=== PATIENT | female | born 1930 | race Caucasian/White ===

== ENCOUNTER 2016-12-13 18:31 | Emergency (ER) | payer MEDICARE ==
[~2016-12-13] VITALS: Ht 160 cm; Wt 61.2 kg
[2016-12-13 18:31] VITALS: BP 118/71; PULSE 98; RESP 18; TEMP 97.9; O2SAT 98
[~2016-12-13 18:31] MED LIST: ALEN70TA3 PO; ATEN50TA PO; GLU500 PO; LEVO88TA2 PO; LIP20 PO; LISI-217 PO; LISI-600 PO; SIMV5TAB53 PO; SIMV80TA74 PO; WARF3TAB PO
--- NOTE | 2016-12-13 18:31 | NUR ---
Pt BIB ALS, placed to ER bed 04 and to spot cleaner. Pt report given to MARK Guerrero.
--- NOTE | 2016-12-13 18:32 | NUR ---
DR. FREED AT BEDSIDE
[2016-12-13] MEDS ORDERED: NS 1000 ML BAG IV ONE (19:00)
--- NOTE | 2016-12-13 19:30 | NUR ---
Received report PM shift endorsement. Patient calm in bed, denies pain, AAOx3. C/O dizziness. unlabored breathing, no signs of distress.
[2016-12-13 19:35] LABS: HEMATOCRIT 27.4 % (36-48); HEMOGLOBIN 8.8 g/dL (12.0-16.0); MEAN CORPUSCULAR HEMOGLOBIN 25 pg (27-31); MEAN CORPUSCULAR HGB CONC 32 % (32-36); MEAN CORPUSCULAR VOLUME 79 fL (79.0-98.0); PLATELET COUNT (AUTO) 158 K/uL (130-430); RED BLOOD CELL COUNT(AUTO) 3.49 MIL/uL (4.2-6.2); RED CELL DISTRIBUTION WIDTH 15.3 % (9.0-15.0)
--- NOTE | 2016-12-13 19:36 | NUR ---
Patient incontinent, large soft BM with bright red blood significant amount. Does not appear to come from anus area. ER MD Garrett aware. Patient cleaned, linen changed. Patient tolerated well.
--- NOTE | 2016-12-13 19:50 | NUR ---
# 20 gauge angiocath placed to LEFT FOREARM. Use of asceptic technique. Opsite placed over site. Blood return noted. Flushed with 10 cc of normal saline. No evidence of infiltration noted. Patient tolerated well.
[2016-12-13 19:53] LABS: ANION GAP 8 (5-15); CALCIUM 9.7 mg/dL (8.4-11.0); CHLORIDE 106 mmol/L (98-107); CREATININE 1.12 mg/dL (0.55-1.30); GLUCOSE 193 mg/dL (70-99); POTASSIUM 4.2 mmol/L (3.5-5.1); SODIUM SERUM 139 mmol/L (136-145); UREA NITROGEN, BLOOD 22 mg/dL (8-21)
--- NOTE | 2016-12-13 19:55 | NUR ---
Mainframe Applications Developer at bedside for blood draw. Patient identified x2
[2016-12-13 19:58] LABS: ALANINE AMINOTRANSFERASE 18 U/L (12-78); ALBUMIN 3.7 g/dL (3.4-4.8); ASPARTATE AMINOTRANSFERASE 16 U/L (10-37); TOTAL BILIRUBIN 0.6 mg/dL (0.0-1.0); TOTAL PROTEIN, SERUM 7.7 g/dL (6.4-8.3)
[2016-12-13 20:05] LABS: ATYPICAL LYMPHOCYTES % 5 % (0-0); BAND % (MANUAL) 11 % (0-6); BASOPHILS % (MANUAL) 1 % (0-2); EOSINOPHILS % (MANUAL) 3 % (0-7); LYMPHOCYTES % (MANUAL) 10 % (20-46); MONOCYTES % (MANUAL) 3 % (0-11)
[2016-12-13 20:55] LABS: PROTHROMBIN TIME 10.6 SECS (9.5-12.5)
[2016-12-13] MEDS ORDERED: FURO-150 PO (21:05)
[2016-12-13] MEDS ORDERED: LEVO88TA5 PO (21:05)
[2016-12-13] MEDS ORDERED: LISI10TA5 PO (21:05)
[2016-12-13] MEDS ORDERED: PRO40 PO (21:05)
[2016-12-13] MEDS ORDERED: GLU850 PO (21:05)
[2016-12-13] MEDS ORDERED: ASA81 PO (21:05)
--- NOTE | 2016-12-13 21:05 | NUR ---
Medication reconciliation completed with information provided by - verbal from son. Any prior medication reconciliation on file was reviewed and corrected.
--- NOTE | 2016-12-13 21:09 | NUR ---
Patient in Ultrasound for U/S via gurmegan
--- NOTE | 2016-12-13 21:30 | NUR ---
# 16 FR Winters catheter with use of sterile technique. Immediate return of 200 cc pale yeallow urine noted. Bedside drainage bag placed below level of bladder. Urine sample collected and sent to lab. Pt tolerated procedure well. Patient unable to toilet self.
[2016-12-13 22:12] LABS: BILIRUBIN,URINE NEGATIVE (NEGATIVE); BLOOD, URINE NEGATIVE (NEGATIVE); CLARITY/URINE CLEAR (CLEAR); COLOR,URINE YELLOW (YELLOW); GLUCOSE,URINE NEGATIVE (NEGATIVE); KETONES,URINE NEGATIVE (NEGATIVE); LEUKOCYTE ESTERASE ,URINE NEGATIVE (NEGATIVE); NITRITE, URINE NEGATIVE (NEGATIVE); PROTEIN URINE NEGATIVE (NEGATIVE); UROBILINOGEN,URINE 0.2 (0.2-1.0)
--- NOTE | 2016-12-13 22:43 | NUR ---
Patient asleep in bed, VS WNL. No signs of acute distress.
--- NOTE | 2016-12-13 23:17 | NUR ---
Patient cleaned bloody BM, linen changed.
[2016-12-14 00:47] VITALS: BP 143/77; PULSE 73; RESP 16; TEMP 97.8; O2SAT 99
--- NOTE | 2016-12-14 00:47 | NUR ---
Patient to be transferred to [facility] ER. Is being transferred due to higher level of care. Receiving facility has accepting physician and available space. ER physician has signed transfer form. Patient or responsible constitution party has agreed to transfer and signed form. Patient belongings inventoried and will be sent with patient. Copy of nursing notes, lab reports, EKG, Physicians Orders and X-rays to be sent with patient. Report called to Panfilo FLORES at receiving facility. Receiving physician is Manolo. Ambulance service here picking up the patient.
== END 2016-12-14 00:47 | disposition short-term general hospital (02) ==
LOC: SED 18:31
DX: N93.8 Other specified abnormal uterine and vaginal bleeding (principal); E11.9 Type 2 diabetes mellitus without complications; I10 Essential (primary) hypertension; Z86.79 Personal history of other diseases of the circulatory system; Z96.649 Presence of unspecified artificial hip joint; Z88.5 Allergy status to narcotic agent; Z79.82 Long term (current) use of aspirin
CPT/HCPCS: 36415; 51702; 71010; 74176; 76856; 80053; 81003; 83605; 84484; 85007; 85027; 85610; 85730; 86886; 86900; 86901; 87040; 93005; 96360; 99285; J7030

== ENCOUNTER 2016-12-16 00:28 | Emergency (ER) | payer MEDICARE ==
[~2016-12-16] VITALS: Ht 160 cm; Wt 54.4 kg
[~2016-12-16 00:28] MED LIST changes: +ASA81 PO; +FURO-150 PO; +GLU850 PO; +LEVO88TA5 PO; +LISI10TA5 PO; +PRO40 PO
[2016-12-16 00:33] VITALS: BP 110/82; PULSE 96; RESP 19; TEMP 97.3; O2SAT 97
[2016-12-16] MEDS ORDERED: NACL 0.9% 1,000 ML IV ONE (00:33)
[2016-12-16] MEDS ORDERED: ONDANSETRON HCL 4 MG/2 ML VIAL IVP ONE (00:45)
[2016-12-16 00:59] LABS: BASOPHILS # (AUTO) 0.2 K/uL (0.0-0.2); BASOPHILS % (AUTO) 1.5 % (0.0-2.0); EOSINOPHILS # (AUTO) 0.1 K/uL (0.0-0.4); EOSINOPHILS % (AUTO) 1.2 % (0.0-4.0); HEMATOCRIT 33.4 % (36-48); HEMOGLOBIN 10.9 g/dL (12.0-16.0); LYMPHOCYTES # (AUTO) 1.2 K/uL (1.0-5.5); LYMPHOCYTES % (AUTO) 9.8 % (20.5-51.5); MEAN CORPUSCULAR HEMOGLOBIN 27 pg (27-31); MEAN CORPUSCULAR HGB CONC 33 % (32-36); MEAN CORPUSCULAR VOLUME 82 fL (79.0-98.0); MONOCYTES # (AUTO) 0.6 K/uL (0.0-1.0); MONOCYTES % (AUTO) 5.5 % (1.7-9.3); NEUTROPHILS # (AUTO) 9.7 K/uL (1.8-7.7); PLATELET COUNT (AUTO) 194 K/uL (130-430); RED BLOOD CELL COUNT(AUTO) 4.07 MIL/uL (4.2-6.2); RED CELL DISTRIBUTION WIDTH 16.1 % (9.0-15.0); WHITE BLOOD COUNT (AUTO) 11.8 K/uL (4.8-10.8)
[2016-12-16 01:15] LABS: ANION GAP 10 (5-15); CALCIUM 10.3 mg/dL (8.4-11.0); CHLORIDE 104 mmol/L (98-107); CREATININE 1.38 mg/dL (0.55-1.30); GLUCOSE 204 mg/dL (70-99); POTASSIUM 4.6 mmol/L (3.5-5.1); SODIUM SERUM 139 mmol/L (136-145); UREA NITROGEN, BLOOD 51 mg/dL (8-21)
[2016-12-16 01:25] LABS: ALANINE AMINOTRANSFERASE 19 U/L (12-78); ALBUMIN 3.6 g/dL (3.4-4.8); AMYLASE 51 U/L (0-100); ASPARTATE AMINOTRANSFERASE 29 U/L (10-37); LIPASE 221 U/L (73-393); TOTAL BILIRUBIN 1.1 mg/dL (0.0-1.0); TOTAL PROTEIN, SERUM 7.6 g/dL (6.4-8.3)
[2016-12-16 01:29] LABS: PROTHROMBIN TIME 10.7 SECS (9.5-12.5)
[2016-12-16 02:58] LABS: BILIRUBIN,URINE NEGATIVE (NEGATIVE); BLOOD, URINE NEGATIVE (NEGATIVE); COLOR,URINE YELLOW (YELLOW); GLUCOSE,URINE NEGATIVE (NEGATIVE); KETONES,URINE NEGATIVE (NEGATIVE); LEUKOCYTE ESTERASE ,URINE 1+ (NEGATIVE); NITRITE, URINE POSITIVE (NEGATIVE); PH,URINE 5.5 (5.0-8.0); PROTEIN URINE NEGATIVE (NEGATIVE); UROBILINOGEN,URINE 0.2 (0.2-1.0)
[2016-12-16 03:11] LABS: CLARITY/URINE HAZY (CLEAR)
[2016-12-16 03:18] LABS: BACTERIA,URINE MANY /HPF (None Seen); RBC,URINE 0-3 /HPF (0-3)
[2016-12-16 03:19] LABS: MUCUS,URINE None Seen /LPF (None Seen)
[2016-12-16 04:05] VITALS: BP 102/61; PULSE 88; RESP 16; TEMP 97.8; O2SAT 95
== END 2016-12-16 04:05 | disposition short-term general hospital (02) ==
LOC: SED 00:28
DX: K92.2 Gastrointestinal hemorrhage, unspecified (principal); E11.9 Type 2 diabetes mellitus without complications; I10 Essential (primary) hypertension; Z86.79 Personal history of other diseases of the circulatory system; Z88.5 Allergy status to narcotic agent; Z79.899 Other long term (current) drug therapy
CPT/HCPCS: 36415; 80053; 81000; 82150; 83605; 83690; 84484; 85025; 85610; 85730; 87086; 93005; 96361; 96374; 99285; J2405; J7030; 87186-TC

== ENCOUNTER 2017-04-10 20:57 | Emergency (ER) | payer MEDICARE ==
[~2017-04-10] VITALS: Ht 160 cm; Wt 56.7 kg
[~2017-04-10 20:57] MED LIST changes: -ALEN70TA3 PO; -ATEN50TA PO; -GLU500 PO; -LEVO88TA2 PO; -LISI-217 PO; -LISI-600 PO; -SIMV5TAB53 PO; -SIMV80TA74 PO; -WARF3TAB PO
[2017-04-10 21:10] VITALS: BP_SYST 133
[2017-04-10] MEDS ORDERED: NACL 0.9% 1,000 ML IV ONE (22:00)
[2017-04-10 22:11] LABS: HEMATOCRIT 34.9 % (36-48)
[2017-04-10 22:15] LABS: ANION GAP 9 (5-15); CALCIUM 10.6 mg/dL (8.4-11.0); CHLORIDE 104 mmol/L (98-107); CREATININE 1.34 mg/dL (0.55-1.30); GLUCOSE 158 mg/dL (70-99); POTASSIUM 4.1 mmol/L (3.5-5.1); SODIUM SERUM 138 mmol/L (136-145); UREA NITROGEN, BLOOD 25 mg/dL (8-21)
[2017-04-10 22:16] LABS: HEMOGLOBIN 11.6 g/dL (12.0-16.0); MEAN CORPUSCULAR HEMOGLOBIN 28 pg (27-31); MEAN CORPUSCULAR HGB CONC 33 % (32-36); MEAN CORPUSCULAR VOLUME 86 fL (79.0-98.0); PLATELET COUNT (AUTO) 196 K/uL (130-430); RED BLOOD CELL COUNT(AUTO) 4.07 MIL/uL (4.2-6.2); RED CELL DISTRIBUTION WIDTH 19.8 % (9.0-15.0); WHITE BLOOD COUNT (AUTO) 10.8 K/uL (4.8-10.8)
[2017-04-10 22:18] LABS: PROTHROMBIN TIME 10.6 SECS (9.5-12.5)
[2017-04-10 22:20] LABS: ALANINE AMINOTRANSFERASE 24 U/L (12-78); ALBUMIN 3.9 g/dL (3.4-4.8); ASPARTATE AMINOTRANSFERASE 22 U/L (10-37); TOTAL BILIRUBIN 0.7 mg/dL (0.0-1.0); TOTAL PROTEIN, SERUM 8.1 g/dL (6.4-8.3)
[2017-04-10 22:26] LABS: BAND % (MANUAL) 2 % (0-6); BASOPHILS % (MANUAL) 0 % (0-2); EOSINOPHILS % (MANUAL) 2 % (0-7); LYMPHOCYTES % (MANUAL) 5 % (20-46); MONOCYTES % (MANUAL) 6 % (0-11)
[2017-04-10 23:12] LABS: BILIRUBIN,URINE NEGATIVE (NEGATIVE); BLOOD, URINE 1+ (NEGATIVE); CLARITY/URINE CLOUDY (CLEAR); COLOR,URINE YELLOW (YELLOW); GLUCOSE,URINE NEGATIVE (NEGATIVE); KETONES,URINE NEGATIVE (NEGATIVE); LEUKOCYTE ESTERASE ,URINE 3+ (NEGATIVE); NITRITE, URINE POSITIVE (NEGATIVE); PROTEIN URINE 2+ (NEGATIVE); UROBILINOGEN,URINE 0.2 (0.2-1.0)
[2017-04-10 23:21] LABS: BACTERIA,URINE MANY /HPF (None Seen); MUCUS,URINE None Seen /LPF (None Seen); RBC,URINE 0-3 /HPF (0-3); WBC,URINE >100 /HPF (0-3)
[2017-04-10] MEDS ORDERED: LEVOFLOXACIN 500 MG/D5W 100 ML IV ONE (23:45)
[2017-04-11 00:53] VITALS: BP_SYST 115
== END 2017-04-11 00:53 | disposition home or self-care (01) ==
LOC: SED 20:57
DX: N39.0 Urinary tract infection, site not specified (principal); I10 Essential (primary) hypertension; E11.9 Type 2 diabetes mellitus without complications; Z86.73 Personal history of transient ischemic attack (TIA), and cerebral infarction without residual deficits; Z79.82 Long term (current) use of aspirin; Z96.649 Presence of unspecified artificial hip joint; Z88.5 Allergy status to narcotic agent
CPT/HCPCS: 36415; 71010; 80053; 81000; 85007; 85027; 85610; 85730; 87086; 87186; 93005; 96361; 96365; 99285; J1956; J7030

== ENCOUNTER 2017-09-24 16:09 | Emergency (ER) | payer MEDICARE ==
[~2017-09-24] VITALS: Ht 160 cm; Wt 61.2 kg
[2017-09-24 16:17] VITALS: BP_SYST 131
[2017-09-24 17:34] LABS: BASOPHILS % (AUTO) 0.7 % (0.0-2.0); EOSINOPHILS # (AUTO) 0.3 K/uL (0.0-0.4); HEMATOCRIT 36.7 % (36-48); HEMOGLOBIN 12.4 g/dL (12.0-16.0); LYMPHOCYTES # (AUTO) 2.1 K/uL (1.0-5.5); LYMPHOCYTES % (AUTO) 20.3 % (20.5-51.5); MEAN CORPUSCULAR HEMOGLOBIN 33 pg (27-31); MEAN CORPUSCULAR HGB CONC 34 % (32-36); MEAN CORPUSCULAR VOLUME 96 fL (79.0-98.0); MONOCYTES # (AUTO) 0.7 K/uL (0.0-1.0); MONOCYTES % (AUTO) 7.1 % (1.7-9.3); NEUTROPHILS # (AUTO) 7.3 K/uL (1.8-7.7); NEUTROPHILS % (AUTO) 68.9 % (40.0-70.0); RED BLOOD CELL COUNT(AUTO) 3.83 MIL/uL (4.2-6.2); RED CELL DISTRIBUTION WIDTH 12.5 % (9.0-15.0); WHITE BLOOD COUNT (AUTO) 10.5 K/uL (4.8-10.8)
[2017-09-24 17:39] LABS: ANION GAP 9 (5-15); CHLORIDE 104 mmol/L (98-107); CREATININE 1.01 mg/dL (0.55-1.30); GLUCOSE 108 mg/dL (70-99); SODIUM SERUM 138 mmol/L (136-145); UREA NITROGEN, BLOOD 14 mg/dL (8-21)
[2017-09-24 17:43] LABS: ALANINE AMINOTRANSFERASE 24 U/L (12-78); ALBUMIN 3.8 g/dL (3.4-4.8); ASPARTATE AMINOTRANSFERASE 20 U/L (10-37); TOTAL BILIRUBIN 0.7 mg/dL (0.0-1.0)
[2017-09-24 17:44] LABS: PLATELET COUNT (AUTO) 156 K/uL (130-430)
[2017-09-24 17:45] LABS: BASOPHILS # (AUTO) 0.1 K/uL (0.0-0.2)
[2017-09-24] MEDS ORDERED: ENOXAPARIN SODIUM 60 MG/0.6 ML SYRINGE SUBCUT ONE (18:00)
[2017-09-24 19:16] VITALS: BP_SYST 150
== END 2017-09-24 19:16 | disposition short-term general hospital (02) ==
LOC: SED 16:09
DX: I82.5Z2 Chronic embolism and thrombosis of unspecified deep veins of left distal lower extremity (principal); R60.0 Localized edema; E11.9 Type 2 diabetes mellitus without complications; I10 Essential (primary) hypertension; Z96.649 Presence of unspecified artificial hip joint; Z88.5 Allergy status to narcotic agent; Z79.899 Other long term (current) drug therapy
CPT/HCPCS: 36415; 71010; 80053; 85025; 85379; 93005; 93971; 99285

== ENCOUNTER 2018-02-13 14:15 | Emergency (ER) | payer MEDICARE ==
[~2018-02-13] VITALS: Ht 165.1 cm; Wt 54.4 kg
[2018-02-13 14:15] VITALS: BP_SYST 145
[~2018-02-13 14:15] MED LIST changes: +ALEN70TA27 PO; +CALC-995 PO; +CHOL2000 PO; +FA/M1TAB31 PO; +FURO20TA4 PO; +GLU500 PO; +LIP40 PO; +LISI-209 PO; +ONDA4TAB5 PO
[2018-02-13] MEDS ORDERED: NACL 0.9% 1,000 ML IV ONE (14:18)
[2018-02-13] MEDS ORDERED: MORPHINE 4 MG/ML INJ. SYRINGE IVP ONE (14:30)
[2018-02-13] MEDS ORDERED: ONDANSETRON HCL 4 MG/2 ML VIAL IVP ONE (14:30)
[2018-02-13 15:02] LABS: BASOPHILS % (AUTO) 0.1 % (0.0-2.0); EOSINOPHILS # (AUTO) 0.1 K/uL (0.0-0.4); EOSINOPHILS % (AUTO) 0.8 % (0.0-4.0); HEMATOCRIT 38.6 % (36-48); HEMOGLOBIN 12.5 g/dL (12.0-16.0); LYMPHOCYTES # (AUTO) 0.3 K/uL (1.0-5.5); LYMPHOCYTES % (AUTO) 3.4 % (20.5-51.5); MEAN CORPUSCULAR HEMOGLOBIN 30 pg (27-31); MEAN CORPUSCULAR HGB CONC 32 % (32-36); MEAN CORPUSCULAR VOLUME 93 fL (79.0-98.0); MONOCYTES % (AUTO) 0.5 % (1.7-9.3); NEUTROPHILS # (AUTO) 8.8 K/uL (1.8-7.7); NEUTROPHILS % (AUTO) 95.2 % (40.0-70.0); PLATELET COUNT (AUTO) 159 K/uL (130-430); RED BLOOD CELL COUNT(AUTO) 4.16 MIL/uL (4.2-6.2); WHITE BLOOD COUNT (AUTO) 9.2 K/uL (4.8-10.8)
[2018-02-13 15:16] LABS: ANION GAP 10 (5-15); CALCIUM 9.2 mg/dL (8.4-11.0); CHLORIDE 103 mmol/L (98-107); CREATININE 1.03 mg/dL (0.55-1.30); GLUCOSE 151 mg/dL (70-99); SODIUM SERUM 137 mmol/L (136-145); UREA NITROGEN, BLOOD 20 mg/dL (8-21)
[2018-02-13 15:21] LABS: ALANINE AMINOTRANSFERASE 26 U/L (12-78); ALBUMIN 3.5 g/dL (3.4-4.8); AMYLASE 51 U/L (0-100); ASPARTATE AMINOTRANSFERASE 21 U/L (10-37); LIPASE 239 U/L (73-393); TOTAL BILIRUBIN 1.1 mg/dL (0.0-1.0)
[2018-02-13] MEDS ORDERED: ACETAMINOPHEN 325 MG TABLET ONE (15:26)
[2018-02-13] MEDS ORDERED: ACETAMINOPHEN 325 MG TABLET PO ONE (15:30)
[2018-02-13 15:58] LABS: BILIRUBIN,URINE NEGATIVE (NEGATIVE); BLOOD, URINE NEGATIVE (NEGATIVE); CLARITY/URINE CLEAR (CLEAR); COLOR,URINE YELLOW (YELLOW); GLUCOSE,URINE NEGATIVE (NEGATIVE); KETONES,URINE NEGATIVE (NEGATIVE); LEUKOCYTE ESTERASE ,URINE NEGATIVE (NEGATIVE); NITRITE, URINE NEGATIVE (NEGATIVE); PROTEIN URINE NEGATIVE (NEGATIVE); UROBILINOGEN,URINE 0.2 (0.2-1.0)
[2018-02-13] MEDS ORDERED: cefTRIAXone 1 GM in D5W 50 ML IV ONE (16:00)
[2018-02-13] MEDS ORDERED: cefTRIAXone 1 GM VIAL ONE (16:06)
[2018-02-13 18:19] VITALS: BP_SYST 116
== END 2018-02-13 18:15 | disposition short-term general hospital (02) ==
LOC: SED 14:15
DX: S73.004A Unspecified dislocation of right hip, initial encounter (principal); I10 Essential (primary) hypertension; R32 Unspecified urinary incontinence; Z86.73 Personal history of transient ischemic attack (TIA), and cerebral infarction without residual deficits; Z88.5 Allergy status to narcotic agent; Z79.899 Other long term (current) drug therapy; X58.XXXA Exposure to other specified factors, initial encounter; Y93.89 Activity, other specified; Y92.89 Other specified places as the place of occurrence of the external cause; Y99.8 Other external cause status
CPT/HCPCS: 36415; 51702; 71045; 72170; 80053; 81003; 82150; 82550; 83690; 84484; 85025; 85610; 85730; 93005; 96365; 96375; 99285; J0696; J2270; J2405; J7030

== ENCOUNTER 2018-04-30 21:54 | Emergency (ER) | payer MEDICARE ==
[~2018-04-30] VITALS: Ht 162.6 cm; Wt 54.4 kg
[~2018-04-30 21:54] MED LIST changes: -FURO-150 PO; -GLU850 PO; +HYDR-1189 PO; -LEVO88TA5 PO; -LIP20 PO; -LISI10TA5 PO; -ONDA4TAB5 PO; -PRO40 PO
[2018-04-30 22:02] VITALS: BP_SYST 138
[2018-04-30] MEDS ORDERED: NACL 0.9% 1,000 ML IV ONE (22:30)
[2018-04-30 22:49] LABS: BASOPHILS % (AUTO) 0.3 % (0.0-2.0); EOSINOPHILS # (AUTO) 0.1 K/uL (0.0-0.4); EOSINOPHILS % (AUTO) 1.2 % (0.0-4.0); HEMATOCRIT 32.9 % (36-48); HEMOGLOBIN 11.4 g/dL (12.0-16.0); LYMPHOCYTES # (AUTO) 0.9 K/uL (1.0-5.5); LYMPHOCYTES % (AUTO) 9.5 % (20.5-51.5); MEAN CORPUSCULAR HEMOGLOBIN 33 pg (27-31); MEAN CORPUSCULAR HGB CONC 35 % (32-36); MEAN CORPUSCULAR VOLUME 94 fL (79.0-98.0); MONOCYTES # (AUTO) 0.9 K/uL (0.0-1.0); NEUTROPHILS # (AUTO) 7.6 K/uL (1.8-7.7); PLATELET COUNT (AUTO) 209 K/uL (130-430); RED BLOOD CELL COUNT(AUTO) 3.52 MIL/uL (4.2-6.2); RED CELL DISTRIBUTION WIDTH 13.2 % (9.0-15.0); WHITE BLOOD COUNT (AUTO) 9.5 K/uL (4.8-10.8)
[2018-04-30 23:00] LABS: ACETONE, SERUM NEGATIVE (NEGATIVE)
[2018-04-30 23:01] LABS: ANION GAP 9 (5-15); CALCIUM 9.5 mg/dL (8.4-11.0); CHLORIDE 99 mmol/L (98-107); CREATININE 1.23 mg/dL (0.55-1.30); GLUCOSE 176 mg/dL (70-99); POTASSIUM 4.3 mmol/L (3.5-5.1); SODIUM SERUM 132 mmol/L (136-145); UREA NITROGEN, BLOOD 17 mg/dL (8-21)
[2018-04-30 23:05] LABS: PROTHROMBIN TIME 10.3 SECS (9.5-12.5)
[2018-04-30 23:07] LABS: ALANINE AMINOTRANSFERASE 20 U/L (12-78); ALBUMIN 3.3 g/dL (3.4-4.8); ASPARTATE AMINOTRANSFERASE 15 U/L (10-37); TOTAL BILIRUBIN 1.1 mg/dL (0.0-1.0)
[2018-04-30] MEDS ORDERED: NACL 0.9% 1,750 ML IV ONE (23:30)
[2018-05-01 00:42] LABS: BILIRUBIN,URINE NEGATIVE (NEGATIVE); CLARITY/URINE CLEAR (CLEAR); COLOR,URINE YELLOW (YELLOW); GLUCOSE,URINE NEGATIVE (NEGATIVE); KETONES,URINE NEGATIVE (NEGATIVE); LEUKOCYTE ESTERASE ,URINE NEGATIVE (NEGATIVE); NITRITE, URINE NEGATIVE (NEGATIVE); PROTEIN URINE NEGATIVE (NEGATIVE); UROBILINOGEN,URINE 0.2 (0.2-1.0)
[2018-05-01 00:55] LABS: BLOOD, URINE TRACE (NEGATIVE)
[2018-05-01 02:46] VITALS: BP_SYST 130
== END 2018-05-01 02:46 | disposition home or self-care (01) ==
LOC: SED 21:54
DX: J06.9 Acute upper respiratory infection, unspecified (principal); J45.909 Unspecified asthma, uncomplicated; E11.9 Type 2 diabetes mellitus without complications; I10 Essential (primary) hypertension; Z86.73 Personal history of transient ischemic attack (TIA), and cerebral infarction without residual deficits; Z88.5 Allergy status to narcotic agent; Z79.82 Long term (current) use of aspirin; Z79.899 Other long term (current) drug therapy
CPT/HCPCS: 36415; 71045; 71250; 80053; 81003; 82009; 83605; 83880; 84484; 85025; 85610; 85730; 87040; 93005; 99285; J7030